=== PATIENT | female | born 2000 | race Two or more races ===

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

== ENCOUNTER 2025-05-12 13:58 | Emergency (ER) | payer BC, OTHER ==
[~2025-05-12] VITALS: Ht 149.9 cm; Wt 50.5 kg
[2025-05-12 14:45] LABS: Hematocrit 40.3 % (36.0-46.0); Hemoglobin 13.6 g/dL (12.2-16.2); Mean Corpuscular Hemoglobin 30.4 pg (28.0-32.0); Mean Corpuscular Volume 90.3 fL (80.0-100.0); Nucleated Red Blood Cells % 0.1 %
--- NOTE | 2025-05-12 14:48 | DVH ---
CHEST RADIOGRAPH Indication: cp Technique: Frontal and lateral view of the chest was obtained Comparison: None FINDINGS: Lines and Tubes: None Lungs: Clear Pleura: No effusion. No pneumothorax. Cardiomediastinal contours: Unremarkable Bones: Unremarkable IMPRESSION: No evidence of acute disease.
[2025-05-12 14:53] LABS: Chloride 106 mmol/L (98-107); Sodium 142 mmol/L (136-145)
[2025-05-12 14:54] LABS: Anion Gap 10 (5-15); Carbon Dioxide 26 mmol/L (20-31); Potassium 3.1 mmol/L (3.5-5.1)
[2025-05-12 14:55] LABS: Calcium 9.9 mg/dL (8.7-10.4)
[2025-05-12 14:59] LABS: BUN/Creatinine Ratio 7.8 (10.0-20.0); Glucose 91 mg/dL (74-106)
[2025-05-12 15:03] LABS: Blood Urea Nitrogen 6 mg/dL (9-23)
--- NOTE | 2025-05-12 15:27 | ED.PDOC ---
History of Present Illness HPI Comments This is a 25-year-old female who comes in with chief complaint of flu-like symptoms as well as chest pain and some shortness for breath. The patient states that at approximately 12:00 a.m. they started to experience some shortness for breath as well as a cough. The patient states that approximately 2-3 days ago she was seen at a local urgent care where she was strep negative. The patient now states that early this morning she developed some right-sided chest pain which only lasted for a few sec but it was a 10/10. The episode happened again at home so she called 911. The patient denies any fever or chills. Upon arrival, the patient is comfortable without any abnormal vital signs. She does have a history of panic attacks but states that this felt different Time Seen by MD: 14:04 Primary Care Provider: CHARISSE Reviewed Notes: Nurses Notes, Anthropology Professor Notes, Medications, Allergies (Allergies listed above) Allergies: Coded Allergies: Lamotrigine (Verified Allergy, Unknown, 09/07/15) Information Source: Patient, Emergency Med Personnel Mode of Arrival: EMS Severity: Mild Timing: Hours Duration: Intermittent Prehospital treatment: 12 Lead EKG, [employer], IVF Location: Right-sided sharp chest pain Associated signs and symptoms Minimal shortness of breath Past Medical History Past Medical History (Other): Panic attacks Surgical History: Denies all surgeries BAND ATTACHER History: No Pertinent BAND ATTACHER History Family History Family History: No family hx of Cancer, No family hx of DM, No family hx of Heart david Social History Smoker: Non-Smoker Alcohol: Denies ETOH Use Drugs: Denies Drug Use Lives In: Home Constitutional: denies: chills, diaphoresis, fatigue, fever, malaise, sweats, weakness, others EENTM: denies: blurred vision, double vision, ear bleeding, ear discharge, ear drainage, ear pain, ear ringing, eye pain, eye redness, hearing loss, mouth pain, mouth swelling, nasal discharge, nose bleeding, nose congestion, nose pain, photophobia, tearing, throat pain, throat swelling, voice changes, others Respiratory: reports: shortness of breath; denies: cough, hemoptysis, orthopnea, SOB at rest, SOB with excertion, stridor, wheezing, others Cardiovascular: reports: chest pain; denies: dizzy spells, diaphoresis, Dyspnea on exertion, edema, irregular heart beat, left arm pain, lightheadedness, palpitations, PND, syncope, others Gastrointestinal: denies: abdomen distended, abdominal pain, blood streaked bowels, constipated, diarrhea, dysphagia, difficulty swallowing, hematemesis, melena, nausea, poor appetite, poor fluid intake, rectal bleeding, rectal pain, vomiting, others Genitourinary: denies: abnormal vagina bleeding, burning, dyspareunia, dysuria, flank pain, frequency, hematuria, incontinence, pain, , vagina discharge, urgency, others Neurological: denies: dizziness, fainting, headache, left sided numbness, left sided weakness, numbness, paresthesia, pre-existing deficit, right sided numbness, right sided weakness, seizure, speech problems, tingling, tremors, weakness, others Musculoskeletal: denies: back pain, gout, joint pain, joint swelling, muscle pain, muscle stiffness, neck pain, others Integumetry: denies: bruises, change in color, change in hair/nails, dryness, laceration, lesions, lumps, rash, wounds, others Allergic/Immunocompromised: denies: Difficulty Healing, Frequent Infections, Hives, Itching, others Hematologic/Lymphatic: denies: anemia, blood clots, easy bleeding, easy bruising, swollen glands, others Endocrine: denies: excessive hunger, excessive sweating, excessive thirst, excessive urination, flushing, intolerance to cold, intolerance to heat, unexplained weight gain, unexplained weight loss, others Psychiatric: denies: anxiety, bipolar disorder, depression, hopeless, panic disorder, schizophrenia, sleepless, suicidal, others Physical Exam General Appearance: No Apparent Distress HEENT: Normal ENT Inspection, Pharynx Normal, TMs Normal Neck: Full Range of Motion, Non-Tender, Normal, Normal Inspection Respiratory: Chest Non-Tender, Lungs Clear, No Accessory Muscle Use, No Respiratory Distress, Normal Breath Sounds Cardiovascular: No Edema, No JVD, No Murmur, No Gallop, Normal Peripheral Pulses, Regular Rate/Rhythm Breast Exam: Deferred Gastrointestinal: No Organomegaly, Non Tender, No Pulsatile Mass, Normal Bowel Sounds, Soft Genitalia: Deferred Pelvic: Deferred Rectal: Deferred Extremities: No calf tenderness, Normal capillary refill, Normal inspection, Normal range of motion, Non-tender, No pedal edema Musculoskeletal : Apperance: Normal Neurologic: Alert, clinical trainer II-XII nml as Tested, No Motor Deficits, Normal Affect, Normal Mood, No Sensory Deficits Cerebellar Function: Normal Reflexes: Normal Skin: Dry, Normal Color, Warm Lymphatic: No Adenopathy Was a procedure done? Was a procedure done?: No EKG EKG : Pulse Rate (adult): 97 Skillman: Normal Cardiac Rhythm: NSR Block: None ST: Nonsp Differential Dx Considerations may include: ACS, DE, PE, costochondritis X-Ray, Labs, Meds, VS Vital Signs Date Time Temp Pulse Resp B/P (MAP) Pulse Ox O2 Delivery O2 Flow Rate FiO2 05/12/25 14:02 97 Lab Test 05/12/25 14:34 Range/Units White Blood Count 7.9 4.4-10.8 10^3/uL Red Blood Count 4.47 4.0-5.20 10^6/uL Hemoglobin 13.6 12.2-16.2 g/dL Hematocrit 40.3 36.0-46.0 % Mean Corpuscular Volume 90.3 80.0-100.0 fL Mean Corpuscular Hemoglobin 30.4 28.0-32.0 pg Mean Corpuscular Hemoglobin Concent 33.7 32.0-36.0 g/dL Red Cell Distribution Width 13.7 11.8-14.3 % Platelet Count 217 140-450 10^3/uL Mean Platelet Volume 8.4 6.9-10.8 fL Neutrophils (%) (Auto) 60.5 37.0-80.0 % Lymphocytes (%) (Auto) 31.5 10.0-50.0 % Monocytes (%) (Auto) 6.9 0.0-12.0 % Eosinophils (%) (Auto) 0.7 0.0-7.0 % Basophils (%) (Auto) 0.4 0.0-2.0 % Neutrophils # (Auto) 4.8 1.6-8.6 10 ^3/uL Lymphocytes # (Auto) 2.5 0.4-5.4 10 ^3/uL Monocytes # (Auto) 0.5 0-1.3 10 ^3/uL Eosinophils # (Auto) 0.1 0-0.8 10 ^3/uL Basophils # (Auto) 0 0-0.2 10 ^3/uL Nucleated Red Blood Cells 0.1 % D-Dimer, Quantitative 0.26 0.0-0.49 mg/L FEU Sodium Level 142 136-145 mmol/L Potassium Level 3.1 L 3.5-5.1 mmol/L Chloride Level 106 98-107 mmol/L Carbon Dioxide Level 26 20-31 mmol/L Anion Gap 10 5-15 Blood Urea Nitrogen 6 L 9-23 mg/dL Creatinine 0.77 0.550-1.02 mg/dL Glomerular Filtration Rate Calc 111 >90 mL/min BUN/Creatinine Ratio 7.8 L 10.0-20.0 Serum Glucose 91 74-106 mg/dL Calcium Level 9.9 8.7-10.4 mg/dL Troponin I High Sensitivity < 3 L </=34 ng/L The patient's CBC is within normal limits The chemistry panel is within normal limits except for hypokalemia at 3.1 The patient is being given potassium p.o. for the hypokalemia The chest x-ray shows: No sign of any abnormalities The patient is being discharged and will follow up with the primary care doctor The patient will return to the emergency department's condition worsens Images Reviewed?: Images reviewed and evaluated by me Time of 1ST Reevaluation: 15:25 Reevaluation 1ST: Improved Patient Education/Counseling: Diagnosis, Treatment, Prognosis, Need For Follow Up Family Education/Counseling: No Family Present SEPSIS Sepsis Screen Physician Orders Electrocardigram (05/12/25 14:04) Troponin-I Hs (05/12/25 15:17) Troponin-I Hs (05/12/25 17:17) Chest Two Views Routine (05/12/25 14:17) Vital Signs Date Time Temp Pulse Resp B/P (MAP) Pulse Ox O2 Delivery O2 Flow Rate FiO2 05/12/25 14:02 97 Laboratory Tests Test 05/12/25 14:34 White Blood Count 7.9 10^3/uL (4.4-10.8) Departure 1 Departure Time of Disposition: 15:25 Impression: Primary Impression: Acute anxiety Additional Impression: Chest pain Qualified Codes: R07.9 - Chest pain, unspecified Disposition: HOME / SELF CARE / HOMELESS Condition: Fair Discharged With: Self Critical Care Note Critical Care Time?: No Stability Stability form required: No Heart Score Heart Score: Heart Score Response (Comments) Value History Slightly Suspicious 0 EKG Normal 0 Age <45 0 Risk Factors No known risk factors 0 Troponin Normal limit 0 Total 0 MICHAEL MOSCOSO MD May 12, 2025 15:27
[2025-05-12] MEDS: POTASSIUM CHL 20 Meq TABLET PO ONE (15:30)
--- NOTE | 2025-05-12 16:52 | ECG ---
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
[2025-05-12] MEDS: SODIUM CHLORIDE 0.9% 1,000 ML IV ONE (17:14)
[2025-05-12] MEDS: METOCLOPRAMIDE HCL 5MG/ml INJ 2ml VIAL IV ONE (17:15)
[2025-05-12 17:18] VITALS: O2SAT 95
--- NOTE | 2025-05-12 17:49 | DVH ---
Indication: pain Technique: Single-view abdomen Comparison: None FINDINGS/IMPRESSION: Large volume stool throughout the colon. Thoracolumbar levocurvature. No evidence for free intraperitoneal air. No pathological calcifications.
[2025-05-12] MEDS ORDERED: METO5TAB67 PO (18:40)
[2025-05-12 18:45] VITALS: BP 96/57; PULSE 82; RESP 17; TEMP 99; O2SAT 99
== END 2025-05-12 18:45 | disposition home or self-care (01) ==
LOC: ER 13:58 → EDUNIT# 13:58 → EDBD 13:58 → ER 18:45
DX: F41.9 Anxiety disorder, unspecified (principal); R05.9 Cough, unspecified; R06.02 Shortness of breath; Z79.899 Other long term (current) drug therapy
CPT/HCPCS: 36415; 71046; 74018; 80048; 84484; 85025; 85379; 93005; 96361; 96374; 99285; J2765; J7030